=== PATIENT | female | born 1955 | race Caucasian/White ===

== ENCOUNTER 2018-06-11 07:41 | Emergency (ER) | payer BC ==
[2018-06-11 08:07] VITALS: BP 171/94
--- NOTE | 2018-06-11 09:12 | UC ---
Ear Complaint HPI - HPI Summary HPI Summary: Pt c/o sudden onset intermittent right ear pain. Pt reports that she had URI like symptoms 3 weeks prior that has resolved. NOw has c/o "shooting right ear pain" that is intermittent and began yesterday - History of Current Complaint Chief Complaint: UCEar Stated Complaint: RT EAR COMPLAINT Time Seen by Provider: 06/11/18 08:20 Hx Obtained From: Patient ?: No Onset/Duration: Sudden Onset, Lasting Days, Still Present Severity Initially: Moderate Severity Currently: None Pain Intensity: 0 Pain Scale Used: 0-10 Numeric Associated Signs/Symptoms: Positive: URI Symptoms - Allergies/Home Medications Allergies/Adverse Reactions: Allergies Allergy/AdvReac Type Severity Reaction Status Date / Time No Known Allergies Allergy Verified 06/11/18 08:07 Home Medications: Home Medications Atorvastatin* [Lipitor*] 40 mg PO 1700 06/11/18 [History Confirmed 06/11/18] Cholecalciferol TAB* [Vitamin D TAB*] 5,000 unit PO DAILY 06/11/18 [History Confirmed 06/11/18] Levothyroxine TAB* [Synthroid TAB*] 50 mcg PO DAILY 06/11/18 [History Confirmed 06/11/18] Mirabegron [Myrbetriq] 50 mg PO DAILY 06/11/18 [History Confirmed 06/11/18] Omeprazole 10 mg PO DAILY 06/11/18 [History Confirmed 06/11/18] Quinapril HCl 40 mg PO DAILY 06/11/18 [History Confirmed 06/11/18] PMH/Surg Hx/FS Hx/Imm Hx Previously Healthy: Yes - Surgical History Surgical History: Yes Surgery Procedure, Year, and Place: hysterectomy. bladder. neck surgery - Family History Known Family History: Positive: Cardiac Disease - Social History Occupation: Retired Lives: With Family Alcohol Use: Rare Substance Use Type: None Smoking Status (MU): Never Smoked Tobacco Have You Smoked in the Last Year: No - Immunization History Vaccination Up to Date: No Review of Systems All Other Systems Reviewed And Are Negative: Yes Constitutional: Positive: Negative Skin: Positive: Negative Eyes: Positive: Negative ENT: Positive: Ear Ache - right Respiratory: Positive: Negative Cardiovascular: Positive: Negative Gastrointestinal: Positive: Negative Genitourinary: Positive: Negative Motor: Positive: Negative Neurovascular: Positive: Negative Musculoskeletal: Positive: Negative Neurological: Positive: Headache - intermittent at time of clinic visit, denies METZ Physical Exam Triage Information Reviewed: Yes Appearance: Well-Appearing Vital Signs: Initial Vital Signs Temp 97.7 F 06/11/18 08:04 Pulse 75 06/11/18 08:04 Resp 16 06/11/18 08:04 BP 171/94 06/11/18 08:04 Pulse Ox 97 06/11/18 08:04 Vital Signs Reviewed: Yes Eye Exam: Normal ENT Exam: Other ENT: Positive: Other - right ear canal cerumen Dental Exam: Normal Neck exam: Normal Respiratory Exam: Normal Cardiovascular Exam: Normal Musculoskeletal Exam: Normal Neurological Exam: Normal Neurological: Positive: Alert Psychological Exam: Normal Skin Exam: Normal Ear Complaint Course/Dx - Differential Dx/Diagnosis Differential Diagnosis/HQI/PQRI: Cerumen Impaction, Otitis Media, Trigeminal Nueralgia, URI Provider Diagnosis: Right ear impacted cerumen, Acute pain of right ear Discharge - Sign-Out/Discharge Documenting (check all that apply): Patient Departure All imaging exams completed and their final reports reviewed: No Studies - Discharge Plan Condition: Stable Disposition: HOME Patient Education Materials: Cerumen Impaction (ED), General Headache (ED) Referrals: Maine Carlisle MD [Primary Care Provider] - If Needed - Billing Disposition and Condition Condition: STABLE Disposition: Home - Attestation Statements Provider Attestation: Per institutional requirements, I have reviewed the chart, however, I was not consulted specifically or made aware of this patient by the midlevel provider. I did not personally evaluate, interact with , or disposition this patient.
== END 2018-06-11 08:49 | disposition home or self-care (01) ==
LOC: UCCORT 07:41
DX: H61.21 Impacted cerumen, right ear (principal); H92.01 Otalgia, right ear
CPT/HCPCS: 99202; G0463